=== PATIENT | male | born 1960 ===

== ENCOUNTER 2019-06-05 11:14 | Outpatient (RCR) | payer OTHER, SELFPAY | END 2019-09-03 23:59 | disposition home or self-care (01) | LOC: ANHDMC 11:14 | DX: E11.22 Type 2 diabetes mellitus with diabetic chronic kidney disease (principal); Z71.89 Other specified counseling | CPT/HCPCS: G0108 ==

== ENCOUNTER 2019-10-11 15:11 | Outpatient (RCR) | payer SELFPAY | END 2020-01-09 23:59 | disposition home or self-care (01) | LOC: ANHDMC 15:11 | DX: E11.22 Type 2 diabetes mellitus with diabetic chronic kidney disease (principal); Z71.89 Other specified counseling | CPT/HCPCS: G0108 ==